=== PATIENT | female | born 1975 | race Caucasian/White ===

== ENCOUNTER 2023-10-01 22:56 | Emergency (ER) | payer OTHER ==
[~2023-10-01] VITALS: Ht 167.6 cm; Wt 77.3 kg
[2023-10-01 23:58] VITALS: BP 133/68
== END 2023-10-02 00:01 | disposition home or self-care (01) ==
LOC: ED 22:56
DX: S93.402A Sprain of unspecified ligament of left ankle, initial encounter (principal); X50.1XXA Overexertion from prolonged static or awkward postures, initial encounter; Z88.1 Allergy status to other antibiotic agents; Z88.8 Allergy status to other drugs, medicaments and biological substances
CPT/HCPCS: 73610; 73630; 99283

== ENCOUNTER 2023-10-09 14:16 | Emergency (ER) | payer OTHER ==
[~2023-10-09] VITALS: Ht 172.7 cm; Wt 79.3 kg
--- OUTSIDE RECORDS SUMMARY | 2023-10-09 14:23 | XMS ---
PreManage Notification: RANDY CORTES Security Patient Support Representative Events No recent Security Events currently on file CRITERIA MET - [facility] - 2 Visits in 30 Days CARE PROVIDERS There are no care providers on record at this time. Bridgett has no Care Guidelines for this patient. Karl [facility] (12 MO.) [facility] NOTE: Visits indicate total known visits. ED/C VISIT TRACKING (12 MO.) [facility]23 [facility] COMPLAINT: - LT FOOT PAIN 10/01/2023 22:[address] [facility] [facility] [place] TYPE: Emergency COMPLAINT: - POSS BROKEN LEFT FOOT DIAGNOSES: - Allergy status to other antibiotic agents - Allergy status to other drugs, medicaments and biological substances - Overexertion from prolonged static or awkward postures, initial encounter - Pain in left ankle and joints of left foot - Sprain of unspecified ligament of left ankle, initial encounter INPATIENT VISIT TRACKING (12 MO.) No inpatient visits to display in this time frame [email or web address]
[2023-10-09] MEDS ORDERED: TYLENOL EXTRA500 MG PO (14:24)
[2023-10-09 15:35] VITALS: BP 143/95
== END 2023-10-09 15:35 | disposition home or self-care (01) ==
LOC: ED 14:16
DX: S93.402A Sprain of unspecified ligament of left ankle, initial encounter (principal); X50.1XXA Overexertion from prolonged static or awkward postures, initial encounter; Z88.1 Allergy status to other antibiotic agents; Z88.8 Allergy status to other drugs, medicaments and biological substances
CPT/HCPCS: 99283